=== PATIENT | female | born 1960 | race Hispanic/Latino ===

== ENCOUNTER 2017-01-07 09:19 | Emergency (ER) | payer OTHER ==
[2017-01-07 09:19] VITALS: BMI 23.7
[2017-01-07 09:31] VITALS: RESP 16; TEMP 98.5
--- NOTE | 2017-01-07 09:58 | ED PDOC ---
Arrival/HPI - General Chief Complaint: Trauma Time Seen by Provider: 01/07/17 09:47 Historian: Patient - History of Present Illness Narrative History of Present Illness (Text): 01/07/17 09:46 Britni Dobson is a 56 year old female who presents to the emergency department complaining of fall prior to arrival. Patient is uncertain is she "tripped on something" but states that she fell forward and hit her head in the ground and hit her left knee. Denies loss of consciousness. Denies visual symptoms. Denies nausea or vomiting. Denies neck pain. Denies numbness or weakness. Denies preceding dizziness or palpitations. Denies chest pain or shortness of breath. Denies facial pain. Denies hip or back pain. Denies active bleeding. PMD: Dr. Sandoval Time/Duration: Prior to Arrival Symptom Onset: Sudden Symptom Course: Improving Activities at Onset: Significant Context: Walking, Other ([employer]) Past Medical History - Provider Review Nursing Documentation Reviewed: Yes - Reproductive Menopause: Yes - Past Medical History Past Medical History: No Previous - Cardiac Hx Hypertension: Yes - Pulmonary Hx Respiratory Disorders: No - Neurological Hx Neurological Disorder: No - HEENT Hx HEENT Disorder: No - Renal Hx Renal Disorder: No - Endocrine/Metabolic Hx Endocrine Disorders: No - Hematological/Oncological Hx Blood Disorders: No - Integumentary Hx Dermatological Disorder: No - Musculoskeletal/Rheumatological Hx Musculoskeletal Disorders: No - Gastrointestinal Hx Gastrointestinal Disorders: No - Genitourinary/Gynecological Hx Genitourinary Disorders: No - Psychiatric Hx Depression: Yes Hx Substance Use: No - Past Surgical History Past Surgical History: No Previous - Suicidal Assessment Feels Threatened In Home Enviroment: No Family/Social History - Physician Review Nursing Documentation Reviewed: Yes Family/Social History: No Known Family HX Smoking Status: Former Smoker Hx Alcohol Use: Yes Frequency of alcohol use: Socially Hx Substance Use: No Allergies/Home Meds Allergies/Adverse Reactions: Allergies Sulfa (Sulfonamide Antibiotics) Allergy (Verified 01/07/17 09:24) RASH Home Medications: Home Meds Medication Instructions Recorded Confirmed Escitalopram Oxalate [Lexapro] 5 mg PO DAILY 04/16/13 01/07/17 Review of Systems - Review of Systems Constitutional: absent: Fevers, Night Sweats Eyes: absent: Vision Changes, Eye Pain ENT: absent: Hearing Changes Respiratory: absent: SOB Cardiovascular: absent: Chest Pain, CRUZ Gastrointestinal: absent: Abdominal Pain Genitourinary Female: absent: Dysuria Musculoskeletal: Other (left knee pain). absent: Back Pain, Neck Pain Skin: Other (Abrasions to left knee; bump to the left side of head) Neurological: absent: Headache, Dizziness, Focal Weakness, Gait Changes, Speech Changes Endocrine: absent: Diaphoresis Hemo/Lymphatic: absent: Adenopathy Psychiatric: absent: Depression Physical Exam - Physical Exam Narrative Physical Exam (Text): 01/07/17 09:46 Head: No skull bony deformity palpated. No orbital tenderness. There is hematoma noted to left frontal region, no bleeding or abrasions. Eyes: PERRL. EOMI. Conjunctivae are not pale. ENT: Mucous membranes are moist and intact. Oropharynx is clear and symmetric. No acute dental pain. No facial bony pain. No nasal deformity or pain. No external ear edema or pain. Neck: Supple. Full ROM. No JVD. No lymphadenopathy. No midline tenderness. No soft tissue swelling. Cardiovascular: Regular rate. Regular rhythm. Distal pulses intact. Pulmonary/Chest: No evidence of respiratory distress. Clear to auscultation bilaterally. No wheezing, rales or rhonchi. Abdominal: Soft and non-distended. There is no tenderness. No rebound, guarding, or rigidity. No organomegaly. Good bowel sounds. Back: No CVA tenderness. No midline neck or upper or lower back tenderness. No lesions. Extremities: No hip pain. Full range of motion of hip knee and ankle bilaterally , negative drawers signs. Soft tissue swelling to left knee but full range of motion, mild pain anteriorly to left knee with abrasion and soft tissue swelling. No foreign body noted. No laceration or active bleeding. Skin: Skin is warm and dry. No petechiae. No purpura. Abrasions, superficial to left knee. Neurological: Alert, awake, and oriented. No facial droop. EOMI. No slurred speech. Motor and sensory intact. Ambulatory with steady gait. Psychiatric: Good eye contact. Mildly anxious. Vital Signs Reviewed: Yes Vital Signs Temp Pulse Resp BP Pulse Ox 01/07/17 11:11 88 16 148/78 100 01/07/17 09:25 98.5 F 110 H 16 152/106 H 97 Temperature: Afebrile Blood Pressure: Hypertensive Pulse: Tachycardic Respiratory Rate: Normal Appearance: Positive for: Well-Appearing, Non-Toxic, Uncomfortable Pain Distress: Mild Mental Status: Positive for: Alert and Oriented X 3 Medical Decision Making ED Course and Treatment: 01/07/17 09:46 Impression: 56 year old female complaining of left-sided head contusion and abrasions to left knee s/p mechanical fall prior to arrival. Differential Diagnosis include but are not limited to: Mechanical Fall Plan: -- Head CT w/o contrast -- Left Knee X-ray -- Reassess and disposition Progress Notes: Patient is neurologically intact on initial examination. History is not suggestive of syncope, she denies loss of consciousness, denies chest pain or sob. Abrasions were cleansed and irrigated and dressed. Ice applied to forehead. CT obtained due to head injury associated with soft tissue swelling, localized pain. 01/07/17 10:[address] w/o contrast: Creator : Franc Alvarado MD FINDINGS: HEMORRHAGE:No intracranial hemorrhage. BRAIN:No mass effect or edema. No atrophy or chronic microvascular ischemic changes. VENTRICLES:Unremarkable. No hydrocephalus. CALVARIUM:Unremarkable. PARANASAL SINUSES:Unremarkable as visualized. No significant inflammatory changes. MASTOID AIR CELLS:Unremarkable as visualized. No inflammatory changes. OTHER FINDINGS:None. IMPRESSION: Normal CT of the Head. 01/07/17 11:15 Left Knee X-ray: Creator : Max Lopez MD FINDINGS: BONES:Normal. No fracture. JOINTS:Normal. No osteoarthritis. JOINT EFFUSION:None. OTHER FINDINGS:None. IMPRESSION: Normal radiographs of the left knee. Imaging studies reviewed with patient. Closed head injury instructions given. As she is neuro intact, comfortable, will discharge with instructions, follow- up instructions. - RAD Interpretation Radiology Orders: 01/07/17 09:54 HEAD W/O CONTRAST [CT] Stat KNEE LEFT 2 VIEWS (AP & LAT) [RAD] Stat - Scribe Statement The provider has reviewed the documentation as recorded by the Scribrell Loya Provider Scribe Attestation: All medical record entries made by the Scribe were at my direction and personally dictated by me. I have reviewed the chart and agree that the record accurately reflects my personal performance of the history, physical exam, medical decision making, and the department course for this patient. I have also personally directed, reviewed, and agree with the discharge instructions and disposition. Disposition/Present on Arrival - Present on Arrival Any Indicators Present on Arrival: No History of DVT/PE: No History of Uncontrolled Diabetes: No Urinary Catheter: No History of Decub. Ulcer: No History Surgical Site Infection Following: None - Disposition Have Diagnosis and Disposition been Completed?: Yes Diagnosis: Contusion of head, Closed head injury, Knee contusion, Knee abrasion Disposition: HOME/ ROUTINE Disposition Time: 11:30 Patient Plan: Discharge Condition: GOOD Discharge Instructions (ExitCare): Head Injury (ED), Contusion in Adults (ED), Abrasion (ED) Additional Instructions: For any headaches, any nausea, any neck pain, any double or blurred vision, any numbness or weakness, any redness or swelling, any hip or back pain, any persistent or worsening of symptoms, get rechecked. Ice swelling. Follow-up with your primary care doctor in 1-2 days. Take tylenol or motrin for pain. Referrals: Jamie Sandoval [Primary Care Provider] - Follow up with primary
--- NOTE | 2017-01-07 10:21 | CT ---
PROCEDURE: CT HEAD WITHOUT CONTRAST. HISTORY: head injury, locaized headache/hematoma COMPARISON: None available. TECHNIQUE: Axial computed tomography images were obtained through the head/brain without intravenous contrast. Radiation dose: Total exam DLP = 723 mGy-cm. This CT exam was performed using one or more of the following dose reduction techniques: Automated exposure control, adjustment of the mA and/or kV according to patient size, and/or use of iterative reconstruction technique. FINDINGS: HEMORRHAGE: No intracranial hemorrhage. BRAIN: No mass effect or edema. No atrophy or chronic microvascular ischemic changes. VENTRICLES: Unremarkable. No hydrocephalus. CALVARIUM: Unremarkable. PARANASAL SINUSES: Unremarkable as visualized. No significant inflammatory changes. MASTOID AIR CELLS: Unremarkable as visualized. No inflammatory changes. OTHER FINDINGS: None. IMPRESSION: Normal CT of the Head.
--- NOTE | 2017-01-07 11:10 | RAD ---
PROCEDURE: Left Knee Radiographs. HISTORY: Pain. COMPARISON: None. FINDINGS: BONES: Normal. No fracture. JOINTS: Normal. No osteoarthritis. JOINT EFFUSION: None. OTHER FINDINGS: None. IMPRESSION: Normal radiographs of the left knee.
[2017-01-07 11:12] VITALS: BP 148/78; PULSE 88; O2SAT 100
== END 2017-01-07 11:25 | disposition home or self-care (01) ==
LOC: ED 09:19
DX: S00.93XA Contusion of unspecified part of head, initial encounter (principal); S09.90XA Unspecified injury of head, initial encounter; S80.02XA Contusion of left knee, initial encounter; S80.212A Abrasion, left knee, initial encounter; W18.30XA Fall on same level, unspecified, initial encounter; Y93.01 Activity, walking, marching and hiking; Y92.511 Restaurant or cafe as the place of occurrence of the external cause; Z87.891 Personal history of nicotine dependence